=== PATIENT | male | born 1950 | race Caucasian/White ===

== ENCOUNTER → 2020-04-02 10:32 | Outpatient (CLI) | payer MEDICARE, OTHER, SELFPAY ==
--- NOTE | 2020-04-02 | DI.RAD.S_ITS ---
PROCEDURE: XR KNEE RT 3V INDICATIONS: Right knee pain TECHNIQUE: 3 views of the knee were acquired. COMPARISON: [facility], MR, KNEE WITH CONTRAST, 02/23/2015, 13:42. FINDINGS: Bones: No fractures or dislocations. No suspicious bony lesions. Severe narrowing of the medial femoral tibial joint and tricompartmental periarticular osteophyte formation. Soft tissues: No joint effusion. No suspicious soft tissue calcifications. IMPRESSION: Tricompartmental knee joint degeneration, severe involving the medial femorotibial joint. Dictated by: Pepe Barrios MERGED WITH [facility] Interpreted: Oscar Hankins MD on 04/02/2020 at 11:09 Approved by: Oscar Hankins M.D. on 04/02/2020 at 14:02
== END ==
PROVIDERS: Family Provider Family Medicine; PCP Student in an Organized Health Care Education/Training Program; Referring Provider Student in an Organized Health Care Education/Training Program; Visit Provider Student in an Organized Health Care Education/Training Program
DX: M25.561 Pain in right knee (principal); M17.11 Unilateral primary osteoarthritis, right knee
CPT/HCPCS: 73562

== ENCOUNTER → 2020-08-02 11:41 | Outpatient (CLI) | payer MEDICARE, OTHER, SELFPAY ==
[2020-08-02 13:04] LABS: Add Manual Diff / Slide Review NO; Basophils Absolute Auto 100 /uL (0-100); Basophils Percent Auto 0.7 % (0-2); Eosinophils Absolute Auto 500 /uL (0-450); Eosinophils Percent Auto 7.6 % (2-4); Hematocrit 44.3 % (41-53); Hemoglobin 15.3 g/dL (13.5-17.5); Lymphocytes Absolute Auto 2200 /uL (1100-4500); Lymphocytes Percent Auto 31.2 % (25-40); Mean Corpuscular HGB Conc 34.6 % (30-36); Mean Corpuscular Hemoglobin 31.7 PG (26-34); Mean Corpuscular Volume 91.7 fL (80-100); Monocytes Absolute Auto 600 /uL (0-900); Neutrophils Absolute Auto 3700 /uL (1500-7000); Neutrophils Percent Auto 52.5 % (50-75); Platelet Count 239 X10^3/uL (150-400); Red Blood Cell Count 4.84 X10^6/uL (4.5-5.9); Red Cell Distribution Width 13.1 % (11.6-14.8)
[2020-08-02 13:23] LABS: BUN Creatinine Ratio 18.5 (6-22); Blood Urea Nitrogen 15 mg/dL (9-20); Calcium 9.7 mg/dL (8.4-10.2); Carbon Dioxide 30 mmol/L (22-32); Chloride 104 mmol/L (98-107); Estimated Glomerular Filt Rate > 60.0 mL/min (>60); Glucose 119 mg/dL (80-110); HEMOLYSIS < 15 (0-50); Potassium 3.8 mmol/L (3.4-5.1); Sodium 138 mmol/L (137-145)
== END ==
PROVIDERS: Family Provider Family Medicine; PCP Student in an Organized Health Care Education/Training Program; Referring Provider Orthopaedic Surgery Adult Reconstructive Orthopaedic Surgery; Visit Provider Orthopaedic Surgery Adult Reconstructive Orthopaedic Surgery
DX: Z01.812 Encounter for preprocedural laboratory examination (principal); Z01.818 Encounter for other preprocedural examination; R73.9 Hyperglycemia, unspecified
CPT/HCPCS: 36415; 80048; 83036; 85025; 93005

== ENCOUNTER → 2020-08-21 11:06 | Outpatient (CLI) | payer MEDICARE, OTHER, SELFPAY ==
[2020-08-21 12:19] LABS: COVID19 -Nasal RAPID Negative (Negative)
== END ==
PROVIDERS: PCP Student in an Organized Health Care Education/Training Program; Visit Provider Nurse Practitioner
DX: Z11.59 Encounter for screening for other viral diseases (principal)
CPT/HCPCS: 87635

== ENCOUNTER 2020-08-23 05:49 | Day surgery (SDC) | payer MEDICARE, OTHER, SELFPAY ==
[2020-08-12 07:27] VITALS: BMI 34.4
[2020-08-23] VITALS (15 sets, daily range): BP systolic 98–130; BP diastolic 54–84; PULSE 59–89; RESP 10–18; TEMP 36.1–38.1; O2SAT 95–99; BMI 32.9
--- NOTE | 2020-08-23 06:00 | DI.RAD.S_ITS ---
PROCEDURE: XR KNEE RT 1TO2V INDICATIONS: post operative right knee TECHNIQUE: 2 view(s) of the knee acquired. COMPARISON: [facility], , XR KNEE RT 3V, 04/02/2020, 10:34. FINDINGS: Bones: Patient is status post knee joint arthroplasty. Hardware components are in expected positions. Visualized bony structures are intact. Soft tissues: Overlying postoperative changes are noted. IMPRESSION: Expected postoperative appearance. Dictated by: Fernando Maya M.D. on 08/23/2020 at 11:38 Approved by: Fernando Maya M.D. on 08/23/2020 at 11:38
[2020-08-23] MEDS: ACETAMINOPHEN 325 MG TABLET 975 MG PO (06:47)
[2020-08-23] MEDS: PREGABALIN 75 MG CAPSULE PO (06:47)
[2020-08-23] MEDS: MELOXICAM 7.5 MG TABLET 15 MG PO (06:47)
[2020-08-23] MEDS: LACTATED RINGERS 1,000 ML 42 ML IV ×2 (07:00→09:46)
--- NOTE | 2020-08-23 07:35 | PM.PREOP ---
Pre-operative Note COVID-19 COVID-19 status: Negative Result date/Date tested (Pos, Neg/Pending): 08/21/20 Interval Note History & Physical reviewed/Exam performed by Physician: Yes Changes to H&P: No H&P completed within 30 days and has changed as indicated here:: plan for R TKA
[2020-08-23] MEDS: CEFAZOLIN 2 GM/100 ML FROZ.PIGGY IV ×3 (07:44→23:25)
[2020-08-23] MEDS: TRANEXAMIC ACID 1,000 MG VIAL 1000 MG INJ ×2 (07:59→09:38)
--- NOTE | 2020-08-23 08:20 | SUR.OPER ---
Supine on padded OR bed. Pillow under head, arms secured on padded armboards <90 degree abduction. Safety belt across torso. Non-operative leg secured with tape over blanket over lower leg. Operative leg positioned on foam knee masterson under control of surgeon.
[2020-08-23] MEDS: ROPIVACAINE 0.5% PF 5 MG/ML 20ML VIAL 60 ML INJ (08:32)
[2020-08-23] MEDS: KETOROLAC 30 MG/ML VIAL IV (08:33)
[2020-08-23] MEDS: MORPHINE 4 MG/ML INJ INJ (08:33)
[2020-08-23] MEDS: SODIUM CHLORIDE IRRIG SOLUTION 250 ML, POVIDONE-IODINE SPONGE STICKS 1 APPLIC IRR (09:18)
--- NOTE | 2020-08-23 09:59 | PM.OP.1 ---
Operative Date/Time/Diagnoses Date of procedure: 08/23/20 Time of procedure: 09:59 Pre-op diagnosis: Right knee OA Post-op diagnosis: same Procedure & Clinicians Procedure: Right TKA Same procedure as scheduled: Yes Indications: Right knee OA resistant to further conservative measures Surgeon: Keaton Spangler [employer] Supervisor: Blaze Lee Anesthesia Type: Spinal and Sedation Operative Notes Findings: Right knee osteoarthritis with varus deformity Closure Type: primary Specimen(s): none sent Prosthetic devices, grafts, tissues, transplants, or devices: [employer] Journey size 9 right BCS femoral component Journey size 7 right tibial base plate 9 mm thick right size 7-8 BCS XLPE polyethylene 35 mm oval button Estimated Blood Loss (mL): 100 Tourniquet time (min): 82 Procedure in detail: Patient was met in the preoperative holding area where the site and side of surgery were marked by . Informed consent had been reviewed in clinic was offered reviewed in the preoperative holding area. All last minute questions were answered. Patient was then brought back in the operating room where he received a spinal anesthetic and then was placed supine on the operating room table. A nonsterile tourniquet was then placed on the right thigh and the right lower extremity then prepped and draped in normal sterile fashion. A surgical time-out was performed verifying the site and side of surgery as well as the name of the patient. The leg was then exsanguinated using an Esmarch and the tourniquet was inflated to 250 mm of mercury. Patient had a previous medial based scar from a medial meniscectomy. The scar was incorporated into our incision in a curvilinear scar over the right knee was then made and a large lateral flap was then elevated. A medial parapatellar arthrotomy was then made using a new 10. Blade. Hoffa fat pad was then removed followed by removal of remnant medial meniscus and removal of the lateral meniscus. Serene's line was then marked and the notch was then cleared of osteophytes the ACL and PCL were then removed. A drill was then used to enter the femoral canal approximately half a cm anterior to the PCL footprint. Intramedullary hien was then placed with the right femoral cutting jig. This was then pinned in place and cut. No additional bone was taken. The drill was then used to enter the tibial canal and the intramedullary hien was then placed. The cutting jig was then placed taking 3 degree posterior slope. Cut was just deep enough to skin underneath the sclerotic bone on the medial side. The knee was then brought into full extension and 9 mm static block fit well in the extension space. Knee was then flexed up and a gap sorting machine attendant was used to set our rotation on the femoral side. This was then checked with the Sizer we can dial in degrees of rotation was set at 3? of external rotation matched. A size 9, 5 in 1 cutting jig was then placed and the cuts were then made. The size 9 trial component was then placed and the box was then reamed and box punch. I a size 7 tibia was then used with a 9 mm thick polyethylene and a size 9 right femur. The tibial rotation was marked using floating rotation technique. The knee was able to be brought into full extension with stable to varus and valgus stress and did not have excess mid flexion or flexion laxity. The patella was then cut and sized for 35 mm patellar button. With trial button was then placed and brought through range of motion there was slight lift-off and a partial lateral lease was then performed to bring the patella down. Trial components were then removed periarticular local injection was then performed followed by pulse lavage of the cut surface of the femur and tibia as well as the patella. The tibial tray was then placed lining up with our rotation gonzales and the tibia was drilled and punched. Bone plugs were then placed in the tibia as well as the femur. Cement was then finger packed on the cut surface of the tibia and was placed on the backside of the tibial tray. The tibial tray was then malleted into place and excess cement was removed. Cement was then finger packed onto the cut surface of the femur with exception of the posterior cut. Cement was placed on the feet of the femoral component and this was malleted into place and excess cement was removed. A size 9 CR polyethylene trial was then placed in a knee the knee was brought into full extension and the tibia was held in internal rotation. At this point the cement was not pliable enough to cement the patella a new batch of cement was then mixed the patella was cemented into place and a clamp was held until the cement had fully cured. During this time Betadine was allowed to soak in the wound for several minutes. This was then lavaged away with copious normal saline. Once the cement was fully cured excess cement was removed and the final size 7-8, 9 mm thick B CS polyethylene was placed and confirmed that the tabs at fully engaged. The tourniquet was then let down 82 minutes of time and the electrocautery was used to gain hemostasis the medial parapatellar arthrotomy was repaired using 1. Vicryl interrupted fashion followed by a running Quill suture followed by 2 Vicryl in the subcutaneous layer followed by 3-0 Stratafix and Aquacel dressing. Complications: none Post-operative Condition: stable Disposition: PACU Plan for aftercare: WBAT RLE, 24 hours post-op abx, ASA 81mg BID
--- NOTE | 2020-08-23 11:00 | SUR.PHASEI ---
1040 late entry Pt doing well, denies pain/nausea, drinking water. RLE elevated on pillow after x-ray was taken, ice pack remains on knee. Report called to GM COONEY. Atul.
--- NOTE | 2020-08-23 11:03 | SUR.PHASEI ---
IV infusion for OR administration only, not AC fluids
[2020-08-23] MEDS: LACTATED RINGERS 1,000 ML 100 ML IV (11:06)
--- NOTE | 2020-08-23 12:02 | PC.ADMIT ---
[address] Admission Note: Safe hand off from PACU. VSS. Lung sounds clear. Patient has no complaints of pain or nausea at this time, CMS intact, pedal pulses palpable. Patient is 96% on room air. Patient is resting comfortably in bed. Bed is low and locked, patient was educated about the use of call light and it's within reach. Bed alarm is active. The patient,Haider Olivarez,70 y/o, was given written information regarding hospital policies, unit procedures and contact persons. Patient's smoking status: Former smoker. Vital Signs - 8 hr 08/23/20 06:49 08/23/20 10:18 08/23/20 10:22 Temperature 97.8 F 100.6 F H Pulse Rate 85 74 72 Respiratory Rate 17 12 15 Blood Pressure 130/81 102/54 L 98/57 L Pulse Oximetry 96 96 97 08/23/20 10:27 08/23/20 10:32 08/23/20 10:37 Temperature Pulse Rate 77 89 66 Respiratory Rate 10 L 12 17 Blood Pressure 100/56 L 103/56 L 111/59 L Pulse Oximetry 95 96 98 08/23/20 10:54 08/23/20 11:00 Temperature 98.1 F 97.4 F L Pulse Rate 63 80 Respiratory Rate 15 16 Blood Pressure 109/57 L 109/67 Pulse Oximetry 98 98
[2020-08-23 15:05] LABS: Add Manual Diff / Slide Review NO; Basophils Absolute Auto 100 /uL (0-100); Basophils Percent Auto 0.6 % (0-2); Eosinophils Absolute Auto 500 /uL (0-450); Eosinophils Percent Auto 3.6 % (2-4); Hematocrit 39.3 % (41-53); Hemoglobin 13.4 g/dL (13.5-17.5); Lymphocytes Absolute Auto 2800 /uL (1100-4500); Lymphocytes Percent Auto 21.5 % (25-40); Mean Corpuscular HGB Conc 34.2 % (30-36); Mean Corpuscular Hemoglobin 31.9 PG (26-34); Mean Corpuscular Volume 93.4 fL (80-100); Monocytes Absolute Auto 1100 /uL (0-900); Monocytes Percent Auto 8.2 % (3-14); Neutrophils Absolute Auto 8700 /uL (1500-7000); Neutrophils Percent Auto 66.1 % (50-75); Platelet Count 235 X10^3/uL (150-400); Red Blood Cell Count 4.21 X10^6/uL (4.5-5.9); Red Cell Distribution Width 13.5 % (11.6-14.8); White Blood Cell Count 13.2 X10^3/uL (4.5-11.0)
[2020-08-23] MEDS: ACETAMINOPHEN 325 MG TABLET 650 MG PO ×2 (15:05→20:56)
--- NOTE | 2020-08-23 15:15 | PT.IIE ---
Current Diagnoses Unilateral primary osteoarthritis, right knee (08/23/20) Surgery Performed Operation Date: 08/23/20 07:45 Actual Procedures p Total Knee Arthroplasty(Right) - Keaton Spangler MD Surgical History (Last Reviewed 08/24/20 @ 07:57 by Blaze Lee PA-C) History of partial colectomy (1997) Hx of appendectomy Hx of cholecystectomy Hx of knee surgery (1976) Hx of tonsillectomy Medical History (Last Reviewed 08/24/20 @ 07:57 by Blaze Lee PA-C) Arthritis BPH (benign prostatic hyperplasia) Colitis Former smoker HLD (hyperlipidemia) HTN (hypertension) Impaired fasting glucose Rectal cancer Physical Therapy Inpatient Evaluation/Re-Eval M1 PT/OT-IP Prior Functional Status Start: 08/23/20 11:46 Freq: NEEDED Status: Active Protocol: Document 08/23/20 15:02 DE (Rec: 08/23/20 15:34 DE [id number]) Medical Review Prior Functional Status Medical History Reviewed Yes Diet/Fluid Consistency Regular Communication WNL. No deficits noted. Able to make needs known. Mobility and Gait IND for all mobility and amb without AD. Prior to the knee pain, pt used to walk ~3 miles but now is limited to ~1 mile d/t pain and has to limp. Pt is able to finish grocery shopping. Activities of Daily Living and IADL's IND for all ADLs and IADLs at baseline. Social History Household Members spouse Living Arrangements House Number of Floors (Floors) Two Floors Number of Stairs To Enter/Railing? 7+7 OLEG with R railing. Home Environment Standard Height Toilet,Tub/ Shower Doors Home Equipment Front Wheel Walker,Shower Seat without Backrest,Hospital Bed ,Grab Bars In Shower Employment Status Retired Additional Social History Comment Pt lives with spouse who will be available to assist full- time at home. Granddaughter and grandson also live closeby who can help if needed. M2 PT-IP Current Condition Start: 08/23/20 11:46 Freq: NEEDED Status: Active Protocol: Document 08/23/20 15:02 DE (Rec: 08/23/20 15:34 DE [id number]) Physical Therapy Current Condition Current Condition Evaluation Date 08/23/20 Treatment Diagnosis R TKA: Difficulty in walking. Onset Date 08/23/20 Weight Bearing Status Weight Bearing Status Weight Bear as Tolerated M3 PT-IP Subjective Start: 08/23/20 11:46 Freq: NEEDED Status: Active Protocol: Document 08/23/20 15:02 DE (Rec: 08/23/20 15:34 DE [id number]) Subjective Physical Therapy Visit Type Type Initial Evaluation Visit Start Time 13:48 Visit Stop Time 14:18 Total Visit Minutes 30 Notes SPT Evan led session under direct supervision of PT Maribel. Number of GEOLOGY FACULTY MEMBER Visits 0 Physical Therapy Visit Comments Patient Comments Pt is agreeable to do PT. M4 PT-IP Mobility and Gait Start: 08/23/20 11:46 Freq: NEEDED Status: Active Protocol: Document 08/23/20 15:02 DE (Rec: 08/23/20 15:34 DE [id number]) PT-Bed Mobility Assessment Supine to Sit Supine to Sit Standby Assistance,Head of Bed Elevated Scooting Scooting to Edge of Bed Standby Assistance PT-Transfer Assessment Sit to and From Stand Sit to and from Stand Contact Guard Assistance,Use of Upper Extremities Equipment Transfer Assistive Device Gait Belt,Front Wheeled Walker Orthotic/Prosthetic Devices or Brace: No Transfers Transfer Destination Chair Transfer Technique Amb Transfer Ability Level of Assist Contact Guard Assistance,Use of Upper Extremities Comments Mobility Comments Pt was lying supine in bed with elevated HOB upon arrival . Pt completed supine to sit at L side EOB with SBA and elevated HOB. Pt then performed sit to stand with CGA FWW. Reviewed WB status with pt. Pt demonstrated great tolerance to WB on RLE without pain. Pt was able to stand on RLE while holding onto FWW. Pt then amb ~20 ft in the room and sat down in the chair with CGA FWW. Pt demonstrated step-through pattern with decreased stride length and decreased feet clearance. Pt was reclined in the chair with pillows under the legs and ice on the R knee . Call light placed within reach. Gait Assessment Gait Gait Assistance Required: Contact Guard Assist Distance (Feet) 20 Able to Maintain Weight Bearing Status Yes During Gait Assistive Devices Assistive Device Gait Belt,Front Wheeled Walker Orthotic/Prosthetic Devices or Brace: No Gait Deviations General Gait Pattern Decreased Stride Length, Decreased Feet Clearance Factors Limiting Gait Function Factors Limiting Gait Function Decreased Activity Tolerance, Decreased Strength,Limited Range of Motion,Poor Balance Comments Gait Comments See mobility comments. Stair Climbing Assessment Comments Stair Climbing Comments Not assessed. PT-Balance Assessment Sitting Balance and Reactions Static Sitting Balance Ability Normal Dynamic Sitting Balance Ability Normal Standing Balance and Reactions Static Standing Balance Ability Normal Dynamic Standing Balance Ability Good M5 PT-IP Objective Assessments Start: 08/23/20 11:46 Freq: NEEDED Status: Active Protocol: Document 08/23/20 15:02 DE (Rec: 08/23/20 15:34 DE [id number]) Orientation Orientation/Cognition Level of Alertness Alert Orientation Name,Age,Birthday,Month,Date, Year,Day of Week,Place, Situation Language Function Ability No Deficits Noted Safety Awareness Understands Safety Issues Memory Description No Deficits Noted Gross Range of Motion Lower Extremity ROM Assessment Bilaterally Impaired Impairments Pt has ~0 deg of extension and ~110 deg of flexion in the R knee. Strength Lower Extremity Strength Assessment Right Impaired Coordination Assessment Gross Coordination Gross Coordination WNL Sensation Assessment Sensation Gross Sensation WNL Light Touch Intact Muscle Tone Muscle Tone WNL Yes M6 PT-IP Treatment Start: 08/23/20 11:46 Freq: NEEDED Status: Active Protocol: Document 08/23/20 15:02 DE (Rec: 08/23/20 15:34 MI [id number]) Physical Therapy Treatment Exercises Exercises Ankle Pumps,Gluteal Sets,Quad Sets,Heel Slides Education Education Provided Weight Bearing Status,Post-Op Packet,Safety Other Treatments Other Treatment Performed Pt was educated on WB status, safety, and role of PT. M7 PT-IP Assessment and Plan Start: 08/23/20 11:46 Freq: NEEDED Status: Active Protocol: Document 08/23/20 15:02 DE (Rec: 08/23/20 15:34 MI [id number]) PT Summary Assessment and Plan Potential Rehabilitation Potential Excellent Status of Condition at Evaluation Stable Summary Impairments Pain,ROM,Strength,Balance, Coordination,Sensation,Tone, Cognition,Bed Mobility, Transfers,Gait,Activity Tolerance Assessment Summary Haider is a 70 yo male POD0 s/p R TKA. At baseline, pt was IND for all mobility, amb, and ADLs without AD. Prior to knee pain, pt used to walk ~3 miles but now is limited to ~1 mile d/t knee pain. On evaluation, pt required CGA- SBA for all mobility, transfers, and amb with use of FWW. Pt is not safe for d/c yet. Pt will need to improve amb distance and perform 14 steps up and down with R railing up before d/c. PT anticipates pt will d/c home with assistance and FWW once medically cleared. Pt will benefit from outpatient PT to improve knee ROM and strength. Goals Bed Mobility Goal Independent Transfer Goal Independent,Front Wheeled Walker Gait Goal Independent,Front Wheel Walker Gait Distance 200 Other Goals Pt will perform 3 steps x5 with R railing up CGA. Days to Meet Goals 3 Frequency of Treatment Frequency Of Treatment Twice a Day Treatment Plan Physical Therapy Treatment Plan Bed Mobility Training,Transfer Training,Gait Training, Therapeutic Exercise,Post Op Education,Discharge Planning, Hot or Cold Pack Other Recommendations and Next Treatment Amb distance and stair Focus climbing. Recommendations To Nursing Amount of Assist Needed 1 Person Assist Discharge Recommendations PT Discharge Recommendations Home with Assistance, Outpatient PT Transportation Needs at Discharge Private Vehicle
--- NOTE | 2020-08-23 19:19 | PC.NURSE ---
AMBULATED SBA WITH WALKER AROUND NURSES STATION,VERY STEADY NO DIFFICULTY
[2020-08-23] MEDS: ASPIRIN EC 81 MG TABLET PO (20:56)
[2020-08-23] MEDS: SODIUM CHLORIDE 0.9% FLUSH 10 ML IV (20:57)
[2020-08-23] MEDS: ATORVASTATIN 20 MG TABLET 10 MG PO (20:57)
[2020-08-23] MEDS: DOCUSATE 100 MG CAPSULE PO (20:57)
--- NOTE | 2020-08-23 22:36 | PC.NURSE ---
LATE NOTE, APPROX. 2130 BLADDER SCAN APPROX 450MLS, ATTEMPTED TO URINATE AGAIN WITHOUT LUCK,IN OUT CATH FOR APPRO.750MLS
[2020-08-24 00:44] VITALS: BP 109/63; PULSE 70; RESP 16; TEMP 36.2; O2SAT 95
[2020-08-24] MEDS: OXYCODONE IR 10 MG TABLET PO ×2 (03:51→08:07)
[2020-08-24 04:00] VITALS: BP 124/68; PULSE 79; RESP 18; TEMP 36.7; O2SAT 95
[2020-08-24 05:24] LABS: Hematocrit 32.7 % (41-53); Hemoglobin 11.5 g/dL (13.5-17.5)
--- NOTE | 2020-08-24 07:56 | PM.PNPO.1 ---
Subjective Subjective Date Patient Seen: 08/24/20 Time Patient Seen: 07:56 Interval history: Pain is mild. Denies fever/ chills. No nausea/ vomiting. No shortness of breath or chest pain. Exam Vital Signs (past 8 hours): - 08/24/20 00:44 08/24/20 04:00 Temperature 97.1 F L 98.1 F Pulse Rate 70 79 Respiratory Rate 16 18 Blood Pressure 109/63 124/68 Pulse Oximetry 95 95 Oxygen Delivery Method Room Air Oxygen Flow Rate 0 Narrative Exam Narrative: 70-year-old male resting comfortably in no apparent distress. Right knee dressing is clean, dry and intact. Sensation grossly intact to light touch distal right lower extremity. Motor functions intact distal right lower extremity. Objective Labs Result Diagrams: 08/24/20 05:11 Labs: Laboratory Results - last 24 hr 08/23/20 08/24/20 14:55 05:11 WBC 13.2 H RBC 4.21 L Hgb 13.4 L 11.5 L Hct 39.3 L 32.7 L MCV 93.4 MCH 31.9 MCHC 34.2 RDW 13.5 Plt Count 235 Neut % (Auto) 66.1 Lymph % (Auto) 21.[address] [place] % (Auto) 8.2 Eos % (Auto) 3.6 Baso % (Auto) 0.6 Neut # (Auto) 8700 H Lymph # (Auto) 2800 [place] # (Auto) 1100 H Eos # (Auto) 500 H Baso # (Auto) 100 PFSH Medical History Arthritis BPH (benign prostatic hyperplasia) Colitis Former smoker HLD (hyperlipidemia) HTN (hypertension) Impaired fasting glucose Rectal cancer Surgical History History of partial colectomy (1997) Hx of appendectomy Hx of cholecystectomy Hx of knee surgery (1976) Hx of tonsillectomy Social History household members: spouse Smoking Status: Former smoker alcohol intake: current Assessment & Plan Post-op Postoperative Procedures: Procedures Operation Date: 08/23/20 07:45 Actual Procedures Side Surgeon p Total Knee Arthroplasty Right Keaton Spangler MD Postop day 1 status post right total knee arthroplasty. Mobilize with physical therapy. Likely discharge home later today. Patient does have 14 steps into his house.
[2020-08-24] MEDS: DOCUSATE 100 MG CAPSULE PO (08:07)
[2020-08-24] MEDS: ASPIRIN EC 81 MG TABLET PO (08:07)
[2020-08-24] MEDS: ACETAMINOPHEN 325 MG TABLET 650 MG PO (08:08)
[2020-08-24] MEDS: SODIUM CHLORIDE 0.9% FLUSH 10 ML IV (08:09)
[2020-08-24] MEDS: TRIAMTERENE/HCTZ 37.5/25 TABLET 1 CAP PO (08:19)
[2020-08-24 08:53] VITALS: BP 118/64; PULSE 92; RESP 17; TEMP 36.6; O2SAT 93
[2020-08-24 09:17] VITALS: O2SAT 95
--- NOTE | 2020-08-24 10:32 | PT.IPTN ---
Current Diagnoses Unilateral primary osteoarthritis, right knee (08/23/20) Surgery Performed Operation Date: 08/23/20 07:45 Actual Procedures p Total Knee Arthroplasty(Right) - Keaton Spangler MD Physical Therapy Treatment Note M2 PT-IP Current Condition Start: 08/23/20 11:46 Freq: NEEDED Status: Discharge Protocol: Document 08/23/20 15:02 DE (Rec: 08/23/20 15:34 DE [id number]) Physical Therapy Current Condition Current Condition Evaluation Date 08/23/20 Treatment Diagnosis R TKA: Difficulty in walking. Onset Date 08/23/20 Weight Bearing Status Weight Bearing Status Weight Bear as Tolerated M3 PT-IP Subjective Start: 08/23/20 11:46 Freq: NEEDED Status: Discharge Protocol: Document 08/24/20 10:08 (Rec: 08/24/20 12:05 [email or web address]) Subjective Physical Therapy Visit Type Type Treatment Note Visit Start Time 10:08 Visit Stop Time 10:32 Total Visit Minutes 24 Notes ARIANNE Rivas led tx under direct supervision of Roberta IT GENERALIST for the entire session. Pts present for entire tx. Number of IT GENERALIST Visits 1 Physical Therapy Visit Comments Patient Comments Pt is agreeable to do PT. Therapy Pain Assessment Pain When Pain Assessed At Rest Pain Present Pain Present Pain Reported Location right knee Intensity 2 Scale Used Numeric (0 - 10) Pain Management Techniques Apply Cold,Re-positioning, Timing of Activity with Medications M4 PT-IP Mobility and Gait Start: 08/23/20 11:46 Freq: NEEDED Status: Discharge Protocol: Document 08/24/20 10:08 (Rec: 08/24/20 12:05 [email or web address]) PT-Bed Mobility Assessment Supine to Sit Supine to Sit Standby Assistance,Head of Bed Elevated Sit to Supine Sit to Supine Standby Assistance,Head of Bed Elevated Scooting Scooting to Edge of Bed Standby Assistance PT-Transfer Assessment Sit to and From Stand Sit to and from Stand Contact Guard Assistance,Use of Upper Extremities Equipment Transfer Assistive Device Gait Belt,Front Wheeled Walker Orthotic/Prosthetic Devices or Brace: No Transfers Transfer Destination Bed Transfer Technique Amb Transfer Ability Level of Assist Standby Assistance,Use of Upper Extremities Comments Mobility Comments Pt lying supine in bed w/ HOB elevated upon arrival. Pain reported 2/10 at rest. BP in supine 119/64. Pt performed ther ex in bed. Supine to sit SBA on L EOB. Sit-stand CGA at first for safety and SBA when pt looked safe. Pt reported no dizziness so did not take BP again. Pt amb in hallway SBA w/ FWW ~100 demonstrating decreased foot clearance and stride, but able to use a step through gait pattern. Pt performed 14 stairs in hallway ascend/descend w/ unilateral rail CGA while using a step to step pattern. Pt then amb ~ 100' back to room SBA w/ FWW. Pt sat on L EOB SBA while using UE to control downward motion. Pt educated on not using adjustable bed at home to keep the knee flexed while in bed to avoid flexion contracture. Pt supplied w/ ice pack to reduce pain, and left w/ call light and all needs within reach. Pts was in the room after leaving and neither pt or had no further questions for therapy. Gait Assessment Gait Gait Assistance Required: Standby Assistance Distance (Feet) 200 Able to Maintain Weight Bearing Status Yes During Gait Assistive Devices Assistive Device Gait Belt,Front Wheeled Walker Orthotic/Prosthetic Devices or Brace: No Gait Deviations General Gait Pattern Decreased Stride Length, Decreased Feet Clearance Factors Limiting Gait Function Factors Limiting Gait Function Decreased Activity Tolerance, Decreased Strength,Limited Range of Motion,Poor Balance Comments Gait Comments See mobility comments. Stair Climbing Assessment Evaluation Level of Assist On Stairs Contact Guard Assistance,1 Person Assistance Devices Stair Climbing Assistive Devices Left Railing,Right Railing Technique/Endurance Stair Climbing Direction Ascend and Descend Stair Climbing Technique Step to Step Number of Steps Climbed 14 Stair Climbing Set # Repetitions (reps) 1 Comments Stair Climbing Comments See mobility section. PT-Balance Assessment Sitting Balance and Reactions Static Sitting Balance Ability Normal Dynamic Sitting Balance Ability Normal Standing Balance and Reactions Static Standing Balance Ability Normal Dynamic Standing Balance Ability Good M5 PT-IP Objective Assessments Start: 08/23/20 11:46 Freq: NEEDED Status: Discharge Protocol: Document 08/23/20 15:02 DE (Rec: 08/23/20 15:34 DE [id number]) Orientation Orientation/Cognition Level of Alertness Alert Orientation Name,Age,Birthday,Month,Date, Year,Day of Week,Place, Situation Language Function Ability No Deficits Noted Safety Awareness Understands Safety Issues Memory Description No Deficits Noted Gross Range of Motion Lower Extremity ROM Assessment Bilaterally Impaired Impairments Pt has ~0 deg of extension and ~110 deg of flexion in the R knee. Strength Lower Extremity Strength Assessment Right Impaired Coordination Assessment Gross Coordination Gross Coordination WNL Sensation Assessment Sensation Gross Sensation WNL Light Touch Intact Muscle Tone Muscle Tone WNL Yes M6 PT-IP Treatment Start: 08/23/20 11:46 Freq: NEEDED Status: Discharge Protocol: Document 08/24/20 10:08 (Rec: 08/24/20 12:05 [email or web address]) Physical Therapy Treatment Exercises Exercises Ankle Pumps,Quad Sets,Heel Slides Education Education Provided Post-Op Packet M7 PT-IP Assessment and Plan Start: 08/23/20 11:46 Freq: NEEDED Status: Discharge Protocol: Document 08/24/20 10:08 (Rec: 08/24/20 12:05 [email or web address]) PT Summary Assessment and Plan Potential Rehabilitation Potential Excellent Summary Impairments Pain,ROM,Strength,Balance, Coordination,Sensation,Tone, Cognition,Bed Mobility, Transfers,Gait,Activity Tolerance Progress Towards Goals Progressing Toward Goals,Safe For Discharge,Goals Met Assessment Summary Pt ambulated 200' SBA w/ FWW and completed 14 stairs CGA for safety. Pts present during entire tx. Pt and were both asked if they had any further questions for therapy and they did not. PT is recommending pt is safe to discharge home w/ assistance and outpatient PT to improve mobility. Goals Bed Mobility Goal Independent Transfer Goal Independent,Front Wheeled Walker Gait Goal Independent,Front Wheel Walker Gait Distance 200 Days to Meet Goals 3 Frequency of Treatment Frequency Of Treatment Twice a Day Treatment Plan Physical Therapy Treatment Plan Bed Mobility Training,Transfer Training,Gait Training, Therapeutic Exercise,Post Op Education,Discharge Planning, Hot or Cold Pack Recommendations To Nursing Amount of Assist Needed 1 Person Assist Discharge Recommendations PT Discharge Recommendations Home with Assistance, Outpatient PT Transportation Needs at Discharge Private Vehicle
--- NOTE | 2020-08-24 10:59 | P.DS_ITS ---
History of Present Illness History of Present Illness Date Patient Seen: 08/24/20 Time Patient Seen: 10:59 Chief complaint: OPB Narrative: Doing well. See progress note. Discharge Providers Provider Discharge Date: 08/24/20 Primary care physician: Janki Holliday MD Consults: 08/23/20 06:00 Consult to Anesthesiology Routine Comment: Consulting Provider: Anesthesiologist Reason for consultation: Regional block for post operative pain control 08/23/20 11:01 Consult to Discharge Planning Routine Comment: Consult to Physical Therapy Evaluate & Treat Comment: Physician Instructions: postop TKA protocol Consult to Respiratory Therapy Evaluate & Treat Comment: Physician Instructions: Evaluate and treat Discharge provider: Blaze Lee PA-C Summary Hospital Course Discharge Diagnosis: Knee osteoarthritis Hospital Course: Procedure: Right TKA Same procedure as scheduled: Yes Indications: Right knee OA resistant to further conservative measures Surgeon: Keaton Spangler Word Processing Operator: Blaze Lee Anesthesia Type: Spinal and Sedation Operative Notes Findings: Right knee osteoarthritis with varus deformity Closure Type: primary Specimen(s): none sent Prosthetic devices, grafts, tissues, transplants, or devices: [employer] Journey size 9 right BCS femoral component Journey size 7 right tibial base plate 9 mm thick right size 7-8 BCS XLPE polyethylene 35 mm oval button Estimated Blood Loss (mL): 100 Tourniquet time (min): 82 Status at Discharge Cognitive/behavioral status at discharge: at baseline, oriented and at baseline, confused Functional status at discharge: uses cane/walker Overall status at discharge: patient is progressing back to baseline Time Spent with Patient Time spent: Less than 30 minutes Exam Vital Signs (past 8 hours): - 08/24/20 04:00 08/24/20 08:53 08/24/20 09:17 Temperature 98.1 F 98 F Pulse Rate 79 92 H Respiratory Rate 18 17 Blood Pressure 124/68 118/64 Pulse Oximetry 95 93 95 Oxygen Delivery Method Room Air Oxygen Flow Rate 0 Narrative Exam Narrative: See progress note Objective Labs Result Diagrams: 08/24/20 05:11 Labs: Laboratory Results - last 24 hr 08/23/20 08/24/20 14:55 05:11 WBC 13.2 H RBC 4.21 L Hgb 13.4 L 11.5 L Hct 39.3 L 32.7 L MCV 93.4 MCH 31.9 MCHC 34.2 RDW 13.5 Plt Count 235 Neut % (Auto) 66.1 Lymph % (Auto) 21.5 L Wallace % (Auto) 8.2 Eos % (Auto) 3.6 Baso % (Auto) 0.6 Neut # (Auto) 8700 H Lymph # (Auto) 2800 Wallace # (Auto) 1100 H Eos # (Auto) 500 H Baso # (Auto) 100 PFSH Medical History Arthritis BPH (benign prostatic hyperplasia) Colitis Former smoker HLD (hyperlipidemia) HTN (hypertension) Impaired fasting glucose Rectal cancer Surgical History History of partial colectomy (1997) Hx of appendectomy Hx of cholecystectomy Hx of knee surgery (1976) Hx of tonsillectomy Social History household members: spouse Smoking Status: Former smoker alcohol intake: current Discharge Assessment & Plan Assessment and Plan Assessment: Patient did well with physical therapy. Patient will be discharged home today in stable condition. Weightbearing as tolerated right lower extremity. Aspirin 81 mg twice daily. Follow-up with [facility] in 10-14 days. Discharge Plan Discharge Plan Patient Disposition: Home Discharge orders & Medications Discharge Orders: Discharge (Order); Ordered 08/24/20 Ordered By: Blaze Lee Prescriptions: New acetaminophen 325 mg Tablet 650 mg PO TID Qty: 60 RF: 0 polyethylene glycol 3350 17 gram Powder In Packet 17 gm PO DAILY PRN (Reason: Constipation) Qty: 10 RF: 0 aspirin 81 mg Tablet,Delayed Release (Dr/Ec) 81 mg PO BID Qty: 60 RF: 0 oxycodone 10 mg Tablet 10 mg PO Q3HR PRN (Reason: Pain, Severe (7-10)) Qty: 40 RF: 0 Continued atorvastatin 10 mg Tablet 10 mg PO BEDTIME RF: 0 triamterene-hydrochlorothiazid 75-50 mg Tablet 1 tab PO QAM RF: 0 multivitamin Capsule 1 cap PO DAILY RF: 0 Discontinued ibuprofen [Advil] 200 mg Tablet 400 mg PO DAILY PRN (Reason: Pain) RF: 0 Follow up/Referrals: Janki Holliday MD [Primary Care Provider] - Keaton Spangler MD [Physician] - (2 weeks) Diet/Activity/Treatments Diet: Diet as Tolerated Activity: WBAT Cold/Heat Therapy: ice as needed Skin/Wound/Dressing Care Report to your healthcare provider any signs of infection, such as:: chills, fever, increased pain, unusual drainage and unusual redness Dressing: keep clean and dry Visit Report/Discharge Packet Instructions: DI for Knee Replacement Stand Alone Forms: Surgery Discharge Discharge Data Primary Care Provider: Janki Holliday Attending Provider: Keaton Spangler
--- NOTE | 2020-08-24 11:06 | CM.DANOTE ---
DCP/Assessment: Reviewed chart. Patient is a 70yr old male admitted to [facility] for right TKA performed on 08-24-20. PCP is Dr. Holliday. Primary payor is 1)Medicare 2)[employer]. Met with patient explained CM/SW role. Patient reports that he hopes to d/c home today. Patient reports that he has all needed DME in the residence. Spouse at bedside. Patient does report having 14 stairs to get into residence but plans to work on stairs with therapy this AM. Patient has outpatient therapy arranged at [facility] [place] first appointment is next week. P: Anticipate home when stable. TESSIE Brizuela Discharge Planning/Care Management CM Discharge Assessment Start: 08/24/20 11:03 Freq: Status: Active Protocol: Document 08/24/20 11:03 KJ (Rec: 08/24/20 11:05 [facility] [id number]) Discharge Planning Assessment Assigned Canvas Baster TESSIE Brizuela Contact Information Liliana Olivarez (spouse) # [phone] Advance Directives? Yes Advance Directives on File No History Provided By Patient,Medical Record Prior Living Arrangements House Household Members spouse Independent with ADL's Yes Is patient alert and oriented? Yes Caregiver for Another No DME Already Rented / Owned FWW / Walker Barriers to Discharge No Discharge Plan Home Transportation Arrangement Family to provide transport. Referrals Initiated None needed Whiteboard Updated in Patient Room with Yes name and ext. # of Canvas Baster Review Status In Process Next Review Type Continued Stay Review Pre-Anesthesia Assessment Start: 08/12/20 07:27 Freq: Status: Complete Protocol: Document 08/12/20 07:27 CAB (Rec: 08/12/20 07:31 CAB [id number]) Pre-Anesthesia Assessment Preferred Name Jose Antonio Patient Information Reviewed Via Phone Assessment Assessment Completed With Spouse Diagnostic Results BMP/CMP,CBC,EKG Comment Lab/EKG @ [facility], COVID screen @ Primary Care Provider Janki Holliday Medical Clearance Received Yes Seen Specialist in Last 12 Months Yes Specialist Seen Orthopedist Comment PCP clearance scanned Primary Language Estonian Equipment Tester Required No Height 182.88 cm Weight 115.212 kg Body Mass Index (BMI) 34.4 Hearing Ability Normal Visual Assist Glasses Dentition Type Teeth, Natural Present,Teeth, Broken,Teeth, Missing Barriers to Learning None Hx Anesthesia Reactions No Hx Family Anesthesia Reaction No Hx Malignant Hyperthermia No Hx Blood Transfusions No Anesthesia Review Requested Yes: Reviewed prior to scheduling Additional comment Anesthesia review scanned alcohol intake current Alcohol Intake Frequency Other: Occasional Smoking Status Former smoker how long ago did patient quit smoking Quit 25 years ago Substance Use Type does not use Pain Present Pain Reported Musculoskeletal Symptoms Abnormal Gait,Back Pain, Difficulty Walking,Joint Pain History of Falling (Recent or History of No ) Patient is completely paralyzed or No completely immobile Mental Status Oriented to own ability Is patient on oxygen? No Does patient have PERALTA/SOB No Hx Sleep Apnea No Currently Taking a Beta Luis No Can You Climb a Flight of Stairs Without Yes SOB Hx Chest Pain No Hx SOB No Hx Syncope or Dizziness No Anti-Coagulant Therapy No Has a Tierce Filler No Cardiac Testing No Hx Pacemaker/ICD No Pacemaker Rep Required? No Cardiac Clearance Received Not Applicable Diet Type At Home Regular dysphagia No Gastrointestinal Symptoms Reflux Urinary Catheter Present No Hx Urinary Self Catheterization No HgbA1C 6.0 Date 08/02/20 Hx Drug Resistant Organism No Presence of External or Internal Medical No Devices Have you had any close contact with No someone diagnosed with COVID-19? Marital Status Lives With spouse Prior Living Arrangements House Number of Floors (Floors) Two Floors Support System Spouse Does the Patient Have Assistance After Yes Surgery Patient Discharge Plan Description Return Home Comment Pt advised overnight length of stay per surgeon Feels Safe in Current Environment Yes Been Physically Hurt or Threatened By a No Person in Current Environment Do you have thoughts of harming yourself None or others? Are you currently considering suicide? No Do you have a plan to hurt yourself or No Plan others? Do You Have Any Spiritual Beliefs That No May Affect Your HC Choices? Do You Have Any Cultural Practices That No May Affect Your HC Choices? Comment Dennis Who Can We Speak to About Patient's Care Family, friends Identifying Code for Release of Patient Declines to issue Information Health Care Proxy/Next of Kin Liliana () Health Care Proxy Emergency Contact Name Liliana () Emergency Contact Advance Directives? Yes Advance Directives on File No Requested Patient Bring Advanced Yes Directives DOS Power of Test Facility Engineer No PAC Instructions Durable medical equipment, Medications to take/avoid, Nasal antibiotic,No ETOH/ petroleum product on skin DOS, NPO,Post-op transportation,Pre -surgical wash,Sturdy shoes/ comfortable clothes,Do not bring valuables and remove jewelry
--- NOTE | 2020-08-24 11:24 | PC.NURSE ---
Patient educated about new medications Oxycodone, ss of infection, ss of stroke, CHF, activity, prescription opioid use. Patient and verbalized understanding of all discharge instructions. Patient left facility with all belongings and paper script for Oxycodone. Patient left facility via wheelchair in private vehicle.
== END 2020-08-24 11:34 | disposition home or self-care (01) ==
LOC: OR 06:27 → AC 08:48
PROVIDERS: PCP Student in an Organized Health Care Education/Training Program; Referring Provider Orthopaedic Surgery Adult Reconstructive Orthopaedic Surgery; Visit Provider Orthopaedic Surgery Adult Reconstructive Orthopaedic Surgery
PROC: 0SRC0JZ Replacement of Right Knee Joint with Synthetic Substitute, Open Approach (ICD-10-PCS; CPT 27447; principal; 2020-08-23 07:45)
DX: M17.31 Unilateral post-traumatic osteoarthritis, right knee (principal); I10 Essential (primary) hypertension; E78.5 Hyperlipidemia, unspecified; E66.9 Obesity, unspecified; M21.161 Varus deformity, not elsewhere classified, right knee
CPT/HCPCS: 27447; 36415; 73560; 85014; 85018; 85025; 94762; 97116; 97161; 97530; C1776; J0690; J1885; J2270; J2274; J2704

== ENCOUNTER → 2022-03-30 10:13 | Outpatient (CLI) | payer MEDICARE, OTHER, SELFPAY ==
[2020-08-23 11:07] VITALS: BMI 32.9
--- NOTE | 2022-03-30 | DI.RAD.S_ITS ---
PROCEDURE: XR LUMBAR SPINE 2-3V INDICATIONS: LOW BACK PAIN TECHNIQUE: 3 views of the lumbar spine were acquired. COMPARISON: MR, L-SPINE WITHOUT CONTRAST, 08/30/2007, 16:34. FINDINGS: Bones: Transitional anatomy is present with rudimentary appearance of the S1-S2 disc. In keeping with prior exam, vertebral bodies are labeled 1 through 5. Recommend full x-ray spine series for further evaluation prior to surgical intervention There is grade 1 anterolisthesis of L4 on L5 increased compared to prior measuring 7 mm. This is increased compared to prior exam, at which time it measured approximately 2 mm. There is moderate to severe disc space narrowing at L4-5, L5-S1. Severe foraminal narrowing is present at L5-S1. No vertebral body compression fractures. No suspicious bony lesions. Soft tissues: Overlying bowel gas pattern is normal. No suspicious soft tissue calcifications. IMPRESSION: Transitional anatomy as above. Increased grade 1 anterolisthesis at L4-5. Significant disc and foraminal narrowing at L5-S1. Dictated by: Erika Contreras M.D. on 03/30/2022 at 20:10 Approved by: Erika Contreras M.D. on 03/30/2022 at 20:15
== END ==
PROVIDERS: PCP Student in an Organized Health Care Education/Training Program; Referring Provider Internal Medicine; Visit Provider Family Medicine
DX: M48.07 Spinal stenosis, lumbosacral region (principal); M43.16 Spondylolisthesis, lumbar region; M54.50 Low back pain, unspecified
CPT/HCPCS: 72100

== ENCOUNTER 2024-11-03 08:42 | Emergency (ER) | payer MEDICARE, OTHER, SELFPAY ==
[2020-08-23 11:07] VITALS: BMI 32.9
[2024-11-03] VITALS (8 sets, daily range): BP systolic 131–170; BP diastolic 70–87; PULSE 61–75; RESP 18; TEMP 36.4–36.5; O2SAT 94–99
--- NOTE | 2024-11-03 09:30 | ED_ITS ---
HPI - Back Pain/Injury General Chief Complaint: Back Pain/Injury Stated Complaint: severe low back pain Time Seen by Provider: 11/03/24 09:25 Source: patient History of Present Illness HPI Narrative: 74-year-old male with history of left sciatica, had MRI low back 2 years ago [place], saw neurosurgery there, offered surgical intervention for findings at that time, he declined, generally has been managing his recurrent left sciatica medically, now for the last couple of days having increased left low back pain, left buttock area discomfort. No lifting, trauma, new activities. No fevers or chills. No incontinence to urine or stool. No numbness tingling scrotal/perineal region. No other causes for low back pain seemed obvious, no dysuria or frequency of urination, no diarrhea or anterior abdominal discomfort, no skin rash/vesicles. Pain is worse with movement. No numbness or tingling or pain to the lower extremities. Related Data Home Medications Medication Instructions Recorded Confirmed atorvastatin 10 mg tablet 10 mg PO BEDTIME 08/12/20 08/23/20 triamterene 75 1 tab PO QAM 08/12/20 08/23/20 mg-hydrochlorothiazide 50 mg tablet multivitamin 1 cap PO DAILY 08/23/20 08/23/20 Previous Rx's Medication Instructions Recorded acetaminophen 325 mg tablet 650 mg (2 x 325 mg) PO TID #60 tabs 08/24/20 aspirin 81 mg tablet,delayed 81 mg PO BID #60 tabs 08/24/20 release oxycodone 10 mg tablet 10 mg PO Q3HR PRN Pain, Severe 08/24/20 (7-10) #40 tabs polyethylene glycol 3350 17 gram 17 gm PO DAILY PRN Constipation 08/24/20 oral powder packet #10 ea hydrocodone 5 mg-acetaminophen 325 1 tab PO Q6H PRN pain #14 tabs 11/03/24 mg tablet hydrocodone 5 mg-acetaminophen 325 1 tab PO Q6H PRN pain #14 tabs 11/03/24 mg tablet naproxen 500 mg tablet 500 mg PO BID 7 days #14 tabs 11/03/24 prednisone 20 mg tablet 40 mg (2 x 20 mg) PO DAILY 5 days 11/03/24 #10 tabs Allergies Allergy/AdvReac Type Severity Reaction Status Date / Time No Known Drug Allergies Allergy Verified 08/23/20 06:45 Patient History Medical History Arthritis BPH (benign prostatic hyperplasia) Colitis Former smoker HLD (hyperlipidemia) HTN (hypertension) Impaired fasting glucose Rectal cancer Surgical History History of partial colectomy (1997) Hx of appendectomy Hx of cholecystectomy Hx of knee surgery (1976) Hx of tonsillectomy Social History household members: spouse Smoking Status: Former smoker alcohol intake: current Smoking Status: Former smoker alcohol intake frequency: holidays/special occasions only Exam Narrative Exam Narrative: GENERAL: Well-developed patient, in moderate distress due to left lower back/sciatic area discomfort HEAD: Atraumatic. Normocephalic. EYES: Pupils equal round, no scleral icterus, conjugate gaze. ENT: Nose without bleeding, purulent drainage. Throat without erythema, tonsillar hypertrophy or exudate. Airway patent. NECK: Trachea midline. Non tender CARDIOVASCULAR: Regular rate and rhythm without murmurs, gallops, or rubs. RESPIRATORY: Clear to auscultation. Breath sounds equal bilaterally. No wheezes, rales, or rhonchi. GASTROINTESTINAL: Abdomen soft, non-tender, nondistended. EXTREMITIES: No edema or joint tenderness. BACK: Nontender without deformity or crepitance. No flank tenderness. Some tenderness left lower back and sciatic groove area, no skin changes or vesicles or bruising. NEURO: AOx3. Straight leg raise left leg 30 degrees active, 45-60 degrees passive but with worsening back pain, no left thigh leg foreleg pain. Right straight leg raise 60? with some left low back discomfort, but no pain right sciatic groove or thigh or foreleg. SKIN: No rash or erythema of visible areas Initial Vital Signs Initial Vital Signs: Vital Signs Temperature 97.5 F L 11/03/24 08:55 Pulse Rate 68 11/03/24 08:55 Respiratory Rate 18 11/03/24 08:55 Blood Pressure 170/87 H 11/03/24 08:55 Pulse Oximetry 99 11/03/24 08:55 Oxygen Delivery Method Room Air 11/03/24 08:55 Course Orders Ordered: Discontinued Medications Dexamethasone (Dexamethasone 10 Mg/Ml Vial) 10 mg IV NOW ONE Stop: 11/03/24 09:41 Last Admin: 11/03/24 10:11 Dose: 10 mg Documented By: SPF Hydromorphone HCl (Hydromorphone 1 Mg Inj) 1 mg IV NOW ONE Stop: 11/03/24 09:41 Last Admin: 11/03/24 10:10 Dose: 1 mg Documented By: SPF Ketorolac Tromethamine (Ketorolac 30 Mg/Ml Vial) 15 mg IV NOW ONE Stop: 11/03/24 09:41 Last Admin: 11/03/24 10:08 Dose: 15 mg Documented By: SPF Ondansetron HCl (Ondansetron 4 Mg/2 Ml Inj) 4 mg IV NOW ONE Stop: 11/03/24 09:41 Last Admin: 11/03/24 10:05 Dose: 4 mg Documented By: AC Vital Signs Vital signs: Vital Signs - 8 hr 11/03/24 13:45 11/03/24 13:59 11/03/24 14:00 Temperature Pulse Rate 75 65 Respiratory Rate 18 Blood Pressure 140/70 131/72 Pulse Oximetry 98 97 Oxygen Delivery Method Room Air 11/03/24 14:00 11/03/24 14:02 11/03/24 14:30 Temperature 97.7 F Pulse Rate 67 61 Respiratory Rate 18 Blood Pressure 131/72 Pulse Oximetry 96 94 Oxygen Delivery Method MDM - Back Pain/Injury Lab Data Attestation: I reviewed the patient's lab results. Lab results narrative: White blood cell count 9700, hemoglobin 17.6, platelets adequate. Glucose 209 noted. Electrolytes and BUN creatinine unremarkable. Calcium 10.3 slight elevation. T bili 2.3 and ALT 83 slight elevation, normal AST and alkaline phosphatase. Urinalysis negative. 11/03/24 10:02 11/03/24 10:02 Labs: Lab Results 11/03/24 11/03/24 Range/Units 10:00 10:02 WBC 9.7 (4.5-11.0) X10^3/uL RBC 5.29 (4.5-5.9) X10^6/uL Hgb 17.6 H (13.5-17.5) g/dL Hct 50.0 (41-53) % MCV 94.4 (80-100) fL MCH 33.3 (26-34) PG MCHC 35.3 (30-36) % RDW 13.5 (11.6-14.8) % Plt Count 264 (150-400) X10^3/uL Neut % (Auto) 67.0 (50-75) % Lymph % (Auto) 23.4 L (25-40) % [place] % (Auto) 7.0 (3-14) % Eos % (Auto) 1.9 L (2-4) % Baso % (Auto) 0.7 (0-2) % Neut # (Auto) 6500 (8294-6137) /uL Lymph # (Auto) 2300 (7333-6111) /uL [place] # (Auto) 700 (0-900) /uL Eos # (Auto) 200 (0-450) /uL Baso # (Auto) 100 (0-100) /uL Sodium 137 (137-145) mmol/L Potassium 3.5 (3.4-5.1) mmol/L Chloride 102 (98-107) mmol/L Carbon Dioxide 23 (22-32) mmol/L BUN 12 (9-20) mg/dL Creatinine 0.94 (0.66-1.25) mg/dL Estimated GFR > 60 (>60) mL/min BUN/Creatinine Ratio 12.8 (6-22) Glucose 209 H (80-110) mg/dL Calcium 10.3 H (8.4-10.2) mg/dL Total Bilirubin 2.3 H (0.2-1.3) mg/dL AST 59 (17-59) IU/L ALT 83 H (<50) IU/L Alkaline Phosphatase 68 (38-126) U/L Total Protein 8.5 H (6.3-8.2) g/dL Albumin 5.0 (3.5-5.0) g/dL Globulin 3.5 (1.7-4.1) g/dL Albumin/Globulin Ratio 1.4 (1.0-2.8) Lipase 215 (23-300) U/L Urine Color Yellow Urine Appearance Clear Urine pH 6.0 (4.5-8.0) Ur Specific [place] 1.010 (1.000-1.035) Urine Protein Negative (Negative) Urine Glucose (UA) 3+ H (Negative) g/dL Urine Ketones Negative (NEGATIVE) Urine Occult Blood Negative (Negative) Urine Nitrate Negative (Negative) Urine Bilirubin Negative (NEGATIVE) Urine Urobilinogen 1.0 (0.2) E.U./dL Ur Leukocyte Esterase Negative (NEGATIVE) Urine RBC None seen (0-5/HPF) Urine WBC None seen (0-5/HPF) Ur Squamous Epith Cells None seen (0-5/HPF) Urine Bacteria None seen (None) Ur Culture Indicated? Cult not indicated Vol Urine Centrifuged 10ml (spun) Point of Care Testing Glucose POC 205 Urine Dip Bedside Urine Glucose 1000 mg/dl Bedside Urine Bilirubin - Negative Bedside Urine Ketone - Negative Urine Specific [place] 1.015 Bedside Urine Occult Blood - Negative Bedside Urine pH 6.0 Bedside Urine Protein - Negative Bedside Urine Urobilinogen - Negative Bedside Urine Nitrite - Negative Bedside Urine Leukocytes - Negative Esterase Imaging Data MRI lumbar spine: Radiologist's Impression: Close Lumbar Spine MRI (Signed) ContrerasErika wise - 11/03/24 Launch?Image [address] [address] Magnetic Resonance Report Signed Patient: Haider Olivarez MR#: [id number] : 1950 Acct:[id number] Age/Sex: 74 / M Date of Service: 11/03/24 Loc: ED Accession Number: [id number] Procedure: MR lumbar spine wo con Ordering Provider: Jose Luis Blood MD PROCEDURE: MR LUMBAR SPINE WO CON INDICATIONS: MRI 2y ago [facility], severe L sciatica sx TECHNIQUE: Noncontrast sagittal T1 spin echo and T2 fast echo, sagittal STIR, and T2 fast spin echo through the lumbar spine. In cases with scoliosis, additional coronal T2 fast spin echo may be performed. COMPARISON: [facility], CR, XR LUMBAR SPINE 2-3V, 03/30/2022, 10:15. FINDINGS: Image quality: Excellent. Alignment and Curvature: There is trace retrolisthesis of L2 on L3, trace anterolisthesis of L4 on L5. There is overall appearance of transitional anatomy. For purposes of this exam, vertebral bodies are labeled 1 through 5. This is in keeping with prior nomenclature. Prior to any spine intervention, full x-ray spine series is recommended. Bone Marrow: Marrow is of normal overall signal. No acute vertebral body compression fractures. Spinal Cord: Conus medullaris terminates at the L1 level. Visualized cord demonstrates normal signal and size. Paraspinous Soft Tissues: No paravertebral masses. Discs: Multilevel moderate disc desiccation. T12-L1: No disc bulge, spinal stenosis or foraminal narrowing. L1-L2: Minimal disc bulge without spinal stenosis. [id number] left and mild right foraminal narrowing with facet and ligamentum flavum hypertrophy. L2-L3: Mild disc bulge with owme-pl-glorlcom spinal stenosis. Moderate to severe bilateral foraminal narrowing, left greater than right with facet and ligamentum flavum hypertrophy. L3-L4: Mild disc bulge with moderate spinal stenosis. Moderate left and mild right foraminal narrowing with facet and ligamentum flavum hypertrophy. L4-L5: Mild disc bulge with severe spinal stenosis. Severe bilateral foraminal narrowing with compression of the exiting L4 nerve roots bilaterally. L5-S1: Mild disc bulge without spinal stenosis. Moderate to severe bilateral foraminal narrowing with facet and ligamentum flavum hypertrophy. IMPRESSION: Multilevel degenerative changes. Multilevel spinal stenosis most severe at L4-5 secondary to disc bulge with contributing effect of facet/ligamentum flavum arthropathy. Multilevel foraminal narrowing most severe at L4-5 with compression of exiting L4 nerve roots bilaterally. Dictated by: Erika Contreras M.D. on 11/03/2024 at 11:26 Approved by: Erika Contreras M.D. on 11/03/2024 at 11:37 MDM Narrative Medical decision making narrative: 74-year-old male in considerable discomfort due to left sciatic pain, prior MRI 2 years ago prompted offer of neurosurgical intervention which was declined, now with 2 days increasing left low back and sciatic area discomfort. No fever on triage. Quite uncomfortable appearing. IV Dilaudid, Zofran, Toradol, Decadron. Screening labs sent. Consider MRI if available today this Sunday day shift, patient agreeable, as he feels it might be difficult to coordinate as an outpatient. MRI lumbar spine noncontrast study ordered, can be done later this morning per shipping technician. Patient agreeable. MRI performed, awaiting results. IV therapies initiated. Patient was some symptomatic improvement, awaiting MRI report MRI lumbar spine. Impressions: ?Multilevel degenerative changes. Multilevel spinal stenosis most severe at L4-5 secondary to disc bulge with contributing effect of facet/ligamentum flavum arthropathy. Multilevel foraminal narrowing most severe at L4-5 with compression of exiting L4 nerve roots bilaterally.? See radiology report Patient improved, able to ambulate, sent Rx for Prednisone Naproxen Hydrocodone/APAP to his pharmacy. Follow up with neurosurgery for now as an outpatient. Home with family. Discharge Plan Departure Patient Disposition: Home Clinical Impression: Left sided sciatica Instructions: DI for Low Back Pain Activity Restrictions/Additional Instructions: Mr. Olivarez, You have had previous sciatica and low back pain problems, with previous reported low back MRI reported about 2 years ago in [place], when you were offered surgery but declined, now with left sciatica low back pain problems without trauma. You had IV pain medications and steroids while in the emergency department, had some improvement in symptoms. MRI of the lumbar spine was done today, showing multilevel spinal stenosis, also some impingement at the level of L4-L5 both sides. He was able to ambulate. No emergent indication for emergent neurosurgical consultation at this time. You are going to see your doctor later this week, consider referral for neurosurgical follow up consultation. Consider taking further pain medications as needed, in a few days more of steroids to reduce inflammation if that might be helpful. Return to this/nearest emergency department prior to your follow up primary care doctor visit if needed. Thank you for letting our team take care of you today. Prescriptions: New prednisone 20 mg tablet 40 mg PO DAILY 5 Days Qty: 10 0RF naproxen 500 mg tablet 500 mg PO BID 7 Days Qty: 14 0RF hydrocodone-acetaminophen 5-325 mg tablet 1 tab PO Q6H PRN (Reason: pain) Qty: 14 0RF hydrocodone-acetaminophen 5-325 mg tablet 1 tab PO Q6H PRN (Reason: pain) Qty: 14 0RF No Action atorvastatin 10 mg Tablet 10 mg PO BEDTIME triamterene-hydrochlorothiazid 75-50 mg Tablet 1 tab PO QAM multivitamin Capsule 1 cap PO DAILY acetaminophen 325 mg Tablet 650 mg PO TID Qty: 60 0RF polyethylene glycol 3350 17 gram Powder In Packet 17 gm PO DAILY PRN (Reason: Constipation) Qty: 10 0RF aspirin 81 mg Tablet,Delayed Release (Dr/Ec) 81 mg PO BID Qty: 60 0RF oxycodone 10 mg Tablet 10 mg PO Q3HR PRN (Reason: Pain, Severe (7-10)) Qty: 40 0RF Referrals: Janki Holliday MD [Primary Care Provider] - Stand Alone Forms: Patient Portal/API/Survey
--- NOTE | 2024-11-03 09:41 | DI.MRI.S_ITS ---
PROCEDURE: MR LUMBAR SPINE WO CON INDICATIONS: MRI 2y ago BHam, severe L sciatica sx TECHNIQUE: Noncontrast sagittal T1 spin echo and T2 fast echo, sagittal STIR, and T2 fast spin echo through the lumbar spine. In cases with scoliosis, additional coronal T2 fast spin echo may be performed. COMPARISON: [facility], CR, XR LUMBAR SPINE 2-3V, 03/30/2022, 10:15. FINDINGS: Image quality: Excellent. Alignment and Curvature: There is trace retrolisthesis of L2 on L3, trace anterolisthesis of L4 on L5. There is overall appearance of transitional anatomy. For purposes of this exam, vertebral bodies are labeled 1 through 5. This is in keeping with prior nomenclature. Prior to any spine intervention, full x-ray spine series is recommended. Bone Marrow: Marrow is of normal overall signal. No acute vertebral body compression fractures. Spinal Cord: Conus medullaris terminates at the L1 level. Visualized cord demonstrates normal signal and size. Paraspinous Soft Tissues: No paravertebral masses. Discs: Multilevel moderate disc desiccation. T12-L1: No disc bulge, spinal stenosis or foraminal narrowing. L1-L2: Minimal disc bulge without spinal stenosis. Mwmz-so-flfmoocj left and mild right foraminal narrowing with facet and ligamentum flavum hypertrophy. L2-L3: Mild disc bulge with wdfp-[id number] spinal stenosis. Moderate to severe bilateral foraminal narrowing, left greater than right with facet and ligamentum flavum hypertrophy. L3-L4: Mild disc bulge with moderate spinal stenosis. Moderate left and mild right foraminal narrowing with facet and ligamentum flavum hypertrophy. L4-L5: Mild disc bulge with severe spinal stenosis. Severe bilateral foraminal narrowing with compression of the exiting L4 nerve roots bilaterally. L5-S1: Mild disc bulge without spinal stenosis. Moderate to severe bilateral foraminal narrowing with facet and ligamentum flavum hypertrophy. IMPRESSION: Multilevel degenerative changes. Multilevel spinal stenosis most severe at L4-5 secondary to disc bulge with contributing effect of facet/ligamentum flavum arthropathy. Multilevel foraminal narrowing most severe at L4-5 with compression of exiting L4 nerve roots bilaterally. Dictated by: Erika Contreras M.D. on 11/03/2024 at 11:26 Approved by: Erika Contreras M.D. on 11/03/2024 at 11:37
[2024-11-03] MEDS: ONDANSETRON 4 MG/2 ML INJ IV (10:05)
[2024-11-03] MEDS: KETOROLAC 30 MG/ML VIAL 15 MG IV (10:08)
[2024-11-03] MEDS: HYDROMORPHONE 1 MG INJ IV (10:10)
[2024-11-03] MEDS: DEXAMETHASONE 10 MG/ML VIAL IV (10:11)
[2024-11-03 10:31] LABS: Add Manual Diff / Slide Review NO; Basophils Absolute Auto 100 /uL (0-100); Basophils Percent Auto 0.7 % (0-2); Eosinophils Absolute Auto 200 /uL (0-450); Eosinophils Percent Auto 1.9 % (2-4); Hemoglobin 17.6 g/dL (13.5-17.5); Lymphocytes Absolute Auto 2300 /uL (1100-4500); Lymphocytes Percent Auto 23.4 % (25-40); Mean Corpuscular HGB Conc 35.3 % (30-36); Mean Corpuscular Hemoglobin 33.3 PG (26-34); Mean Corpuscular Volume 94.4 fL (80-100); Monocytes Absolute Auto 700 /uL (0-900); Neutrophils Absolute Auto 6500 /uL (1500-7000); Platelet Count 264 X10^3/uL (150-400); Red Blood Cell Count 5.29 X10^6/uL (4.5-5.9); Red Cell Distribution Width 13.5 % (11.6-14.8); White Blood Cell Count 9.7 X10^3/uL (4.5-11.0)
[2024-11-03 10:39] LABS: Alanine Aminotransferase 83 IU/L (<50); Albumin Globulin Ratio 1.4 (1.0-2.8); Alkaline Phosphatase 68 U/L (38-126); Aspartate Aminotransferase 59 IU/L (17-59); BUN Creatinine Ratio 12.8 (6-22); Bilirubin Total 2.3 mg/dL (0.2-1.3); Blood Urea Nitrogen 12 mg/dL (9-20); Calcium 10.3 mg/dL (8.4-10.2); Carbon Dioxide 23 mmol/L (22-32); Chloride 102 mmol/L (98-107); Estimated Glomerular Filt Rate > 60 mL/min (>60); Globulin 3.5 g/dL (1.7-4.1); Glucose 209 mg/dL (80-110); HEMOLYSIS 16 (0-50); Lipase 215 U/L (23-300); Potassium 3.5 mmol/L (3.4-5.1); Sodium 137 mmol/L (137-145); Total Protein 8.5 g/dL (6.3-8.2)
[2024-11-03 10:41] LABS: Appearance Urine UA CLEAR; Bilirubin Urine UA NEGATIVE (NEGATIVE); Color Urine UA YELLOW; Glucose Urine UA 3+ g/dL (Negative); Ketones Urine UA NEGATIVE (NEGATIVE); Leukocyte Esterase Urine UA NEGATIVE (NEGATIVE); Nitrite Urine UA NEGATIVE (Negative); Occult Blood Urine UA NEGATIVE (Negative); Protein Urine UA NEGATIVE (Negative)
[2024-11-03 10:42] LABS: Urine Volume 10mL (spun)
[2024-11-03 10:43] LABS: Bacteria Urine None Seen; Culture Indicated Urine Cult Not Indicated; RBC Urine None Seen (0-5/HPF); Squamous Epithelial Cell Urine None Seen (0-5/HPF); WBC Urine None Seen (0-5/HPF)
== END 2024-11-03 14:50 | disposition home or self-care (01) ==
PROVIDERS: Emergency Provider Emergency Medicine; PCP Student in an Organized Health Care Education/Training Program
DX: M54.42 Lumbago with sciatica, left side (principal); M48.061 Spinal stenosis, lumbar region without neurogenic claudication; M51.369 Other intervertebral disc degeneration, lumbar region without mention of lumbar back pain or lower extremity pain; M47.816 Spondylosis without myelopathy or radiculopathy, lumbar region
CPT/HCPCS: 72148; 80053; 81001; 81003; 82962; 83690; 85025; 99284; J1100; J1171; J1885; J2405